=== PATIENT | female | born 1960 | race Caucasian/White ===

== ENCOUNTER → 2016-09-09 | Outpatient (CLI) | payer BC ==
[~2016-09-09] MED LIST: B-COTAB18 PO; CHOL1TAB2 PO; CITA20TA9 PO; CLR10 PO; FISHOIL PO; LSN/10125 PO; SIMV20TA2 PO; [UNRECOGNIZED DRUG - REMARK] PO
--- NOTE | 2016-09-10 12:25 | MAMMOGRAPHY REPORT ---
BILATERAL DIGITAL SCREENING MAMMOGRAM TOMOSYNTHESIS WITH CAD: 09/09/2016 CLINICAL HISTORY: Routine screening. Patient has no complaints. TECHNIQUE: Breast tomosynthesis in addition to standard 2D mammography was performed. Current study was also evaluated with a Computer Aided Detection (CAD) system. COMPARISON: Comparison is made to exams dated: 09/06/2015 mammogram, 08/08/2014 mammogram, 04/01/2014 mammogram, and 03/30/2013 mammogram - [facility]. BREAST COMPOSITION: There are scattered areas of fibroglandular density in both breasts. FINDINGS: An asymmetry in the upper outer posterior right breast appears similar on available mammog [place] dating back to at least 10/19/2008, therefore likely benign. There are a few scattered and mehnaz uped stable microcalcifications bilaterally. No new suspicious mass, architectural distortion or cl uster of microcalcifications is seen. IMPRESSION: ACR BI-RADS CATEGORY 1: NEGATIVE There is no mammographic evidence of malignancy. A 1 year screening mammogram is recommended. The p atient will receive written notification of the results. Approximately 10% of breast cancers are not detected with mammography. A negative mammographic repor t should not delay biopsy if a clinically suggestive mass is present. Donna Higuera M.D. ay/:09/09/2016 16:52:23 Train System Operator: Belkys GLASGOW(Valeriy)(Camelia)([place]), [facility] letter sent: Normal 1/2 BI-RADS Code: ACR BI-RADS Category 1: Negative
== END | disposition home or self-care (01) ==
LOC: C.MAMM 16:25
PROVIDERS: ATTEND Family Medicine
DX: Z12.31 Encounter for screening mammogram for malignant neoplasm of breast (principal)

== ENCOUNTER → 2017-02-28 | Outpatient (CLI) | payer BC ==
--- NOTE | 2017-02-28 11:12 | DIAGNOSTIC IMAGING REPORT ---
LEFT KNEE 1 OR 2 VIEWS ROUTINE CLINICAL HISTORY: M25.552 left knee pain COMPARISON: None. DISCUSSION: There are moderate to moderate osteoarthritic changes. There are dorsal patellar spurs. There are no acute fractures. There is fragmentation of the anterior tibial tuberosity. This is felt to be chronic. IMPRESSION: Mild to moderate osteoarthritic changes most pronounced the medial joint compartment patellofemoral joint. No acute fractures. Electronically signed by: Shamar Coe M.D. 02/28/2017 11:11 AM Dictated Date/Time: 02/28/2017 11:10 AM
--- NOTE | 2017-02-28 11:13 | DIAGNOSTIC IMAGING REPORT ---
LEFT HIP UNILATERAL 2 VIEWS CLINICAL HISTORY: M25.552 PAIN IN LEFT HIP AND KNEE pain COMPARISON: None. DISCUSSION: Minimal degenerative narrowing left hip joint space. 8 mm subchondral cyst superior acetabular margin. No evidence of fracture or dislocation. No evidence for acetabular protrusion. There is no evidence for soft tissue swelling. IMPRESSION: 1. Minimal degenerative narrowing left hip joint space. 2. Degenerative 8 mm subchondral cyst superior acetabular margin. The above report was generated using voice recognition software. It may contain grammatical, syntax or spelling errors. Electronically signed by: Murtaza Lucas M.D. 02/28/2017 11:12 AM Dictated Date/Time: 02/28/2017 11:11 AM
== END | disposition home or self-care (01) ==
LOC: C.RAD1850 10:56
PROVIDERS: ATTEND Family Medicine
DX: M17.12 Unilateral primary osteoarthritis, left knee (principal); M85.48 Solitary bone cyst, other site; M25.552 Pain in left hip; M25.562 Pain in left knee

== ENCOUNTER → 2017-08-05 | Outpatient (CLI) | payer BC | END | disposition home or self-care (01) | LOC: C.PAPS 09:55 | PROVIDERS: ATTEND Obstetrics & Gynecology | DX: Z01.419 Encounter for gynecological examination (general) (routine) without abnormal findings (principal) ==

== ENCOUNTER → 2017-09-10 | Outpatient (CLI) | payer BC ==
--- NOTE | 2017-09-11 15:17 | MAMMOGRAPHY REPORT ---
BILATERAL DIGITAL SCREENING MAMMOGRAM TOMOSYNTHESIS WITH CAD: 09/10/2017 CLINICAL HISTORY: Routine screening. TECHNIQUE: Breast tomosynthesis in addition to standard 2D mammography was performed. Current study was also evaluated with a Computer Aided Detection (CAD) system. COMPARISON: Comparison is made to exams dated: 09/09/2016 mammogram, 09/06/2015 mammogram, 04/01/2014 m ammogram, 03/30/2013 mammogram, 02/28/2012 mammogram, and 02/25/2011 mammogram - [facility]. BREAST COMPOSITION: There are scattered areas of fibroglandular density in both breasts. FINDINGS: No suspicious masses, calcifications, or areas of architectural distortion are noted in ei ther breast. There has been no significant interval change compared to prior exams. IMPRESSION: ACR BI-RADS CATEGORY 1: NEGATIVE There is no mammographic evidence of malignancy. A 1 year screening mammogram is recommended. The pa tient will receive written notification of the results. Approximately 10% of breast cancers are not detected with mammography. A negative mammographic report should not delay biopsy if a clinically suggestive mass is present. Nicolasa Barton M.D. ah/:09/11/2017 07:20:15 Tube Rebuilder: Leidy GLASGOW(Valeriy)(M), [facility] letter sent: Normal 1/2 BI-RADS Code: ACR BI-RADS Category 1: Negative
== END | disposition home or self-care (01) ==
LOC: C.MAMM 16:55
PROVIDERS: ATTEND Obstetrics & Gynecology
DX: Z12.31 Encounter for screening mammogram for malignant neoplasm of breast (principal)